=== PATIENT | female | born 1960 | race Caucasian/White ===

== ENCOUNTER 2017-07-25 17:28 | Emergency (ER) | payer OTHER ==
[~2017-07-25] VITALS: Ht 175.3 cm; Wt 66.0 kg
[2017-07-25 17:32] VITALS: BP 133/73; PULSE 80; RESP 18; TEMP 97.6; O2SAT 100
--- NOTE | 2017-07-25 19:42 | PD ---
HPI Chief Complaint: Pain: Acute or Chronic Time Seen by Provider: 19:25 Travel History International Travel<30 days: No Contact w/Intl Traveler<30days: No Traveled to known affect area: No History of Present Illness HPI 56 year old female presenting with a three day history of a sharp "stitch like" chest pain with associated shortness of breath, leg swelling and pressure in her left leg. She states that over the past few weeks she has been taking the train back and forth to [place] because her mother was dying and her father is in hospice. She has never had symptoms like this before. She went to the urgent care for examination and they recommended that she come to the ED. She has no history of cancer, no tobacco use. She does have history of prolonged travel. No recent surgery. [facility] Past Medical History Medical History: Denies Significant Hx ?: Not Past Surgical History Narrative Surgical Denies Family History Narrative Family History To cousins had heart attacks in their 50s. Social History Tobacco Use: No Allergies-Medications (Allergen,Severity, Reaction): Coded Allergies: Penicillins (Verified Allergy, Severe, 07/25/17) Review of Systems Except as stated in HPI: all other systems reviewed are Neg General / Constitutional: No: Fever, Chills HENT: No: Headaches, Lightheadedness Cardiovascular: Positive: Chest Pain or Discomfort, Edema, No: Irregular Rhythm Respiratory: Positive: Shortness of Breath Gastrointestinal: No: Nausea, Vomiting Genitourinary: No: Urgency, Frequency Musculoskeletal: Positive: Myalgias Neurologic: No: Weakness, Dizziness, Syncope Physical Exam Narrative GENERAL: patient is laying in bed comfortably SKIN: Warm and dry. HEAD: Atraumatic. Normocephalic. EYES: Pupils equal and round. No scleral icterus. No injection or drainage. ENT: No nasal bleeding or discharge. Mucous membranes pink and moist. NECK: Trachea midline. No JVD. CARDIOVASCULAR: Regular rate and rhythm. RESPIRATORY: No accessory muscle use. Clear to auscultation. Breath sounds equal bilaterally. GASTROINTESTINAL: Abdomen soft, non-tender, nondistended. Hepatic and splenic margins not palpable. MUSCULOSKELETAL: Extremities without clubbing or cyanosis. Bilateral edema in the lower extremities, negative Zapata sign. Negative circumferential differences in the LE. No obvious deformities. NEUROLOGICAL: Awake and alert. No obvious cranial nerve deficits. Motor grossly within normal limits. Five out of 5 muscle strength in the arms and legs. Normal speech. PSYCHIATRIC: Appropriate mood and affect; insight and judgment normal. Data Data Last Documented VS Vital Signs Date Time Temp Pulse Resp B/P (MAP) Pulse Ox O2 Delivery O2 Flow Rate FiO2 07/25/17 22:12 07/25/17 21:00 76 16 100 Room Air 07/25/17 19:40 2.00 07/25/17 17:32 97.6 Orders Orders Electrocardiogram (07/25/17 19:36) Complete Blood Count With Diff (07/25/17 19:36) Comprehensive Metabolic Panel (07/25/17 19:36) Magnesium (Mg) (07/25/17 19:36) Prothrombin Time / Inr (Pt) (07/25/17 19:36) Act Partial Throm Time (Ptt) (07/25/17 19:36) Troponin I (07/25/17 19:36) Chest, Single Ap (07/25/17 19:36) Ecg Monitoring (07/25/17 19:36) Iv Access Insert/Monitor (07/25/17 19:36) Oximetry (07/25/17 19:36) Oxygen Administration (07/25/17 19:36) Sodium Chloride 0.9% Flush (Ns Flush) (07/25/17 19:45) Ct Pulmonary Angiogram (07/25/17 19:36) Us Leg Venous Doppler Bilat (07/25/17 19:36) Iohexol 350 Inj (Omnipaque 350 Inj) (07/25/17 21:07) Ed Discharge Order (07/25/17 21:54) Labs Laboratory Tests Test 07/25/17 19:55 White Blood Count 7.2 TH/MM3 Red Blood Count 3.90 MIL/MM3 Hemoglobin 12.9 GM/DL Hematocrit 38.2 % Mean Corpuscular Volume 98.1 FL Mean Corpuscular Hemoglobin 33.0 PG Mean Corpuscular Hemoglobin Concent 33.7 % Red Cell Distribution Width 12.5 % Platelet Count 221 TH/MM3 Mean Platelet Volume 9.0 FL Neutrophils (%) (Auto) 51.1 % Lymphocytes (%) (Auto) 34.2 % Monocytes (%) (Auto) 8.1 % Eosinophils (%) (Auto) 5.6 % Basophils (%) (Auto) 1.0 % Neutrophils # (Auto) 3.7 TH/MM3 Lymphocytes # (Auto) 2.5 TH/MM3 Monocytes # (Auto) 0.6 TH/MM3 Eosinophils # (Auto) 0.4 TH/MM3 Basophils # (Auto) 0.1 TH/MM3 CBC Comment DIFF FINAL Differential Comment Prothrombin Time 10.8 SEC Prothromb Time International Ratio 1.1 RATIO Activated Partial Thromboplast Time 25.6 SEC Blood Urea Nitrogen 13 MG/DL Creatinine 0.64 MG/DL Random Glucose 86 MG/DL Total Protein 7.4 GM/DL Albumin 3.9 GM/DL Calcium Level 9.0 MG/DL Magnesium Level 1.7 MG/DL Alkaline Phosphatase 59 U/L Aspartate Amino Transf (AST/SGOT) 15 U/L Alanine Aminotransferase (ALT/SGPT) 16 U/L Total Bilirubin 0.5 MG/DL Sodium Level 138 MEQ/L Potassium Level 3.6 MEQ/L Chloride Level 105 MEQ/L Carbon Dioxide Level 26.7 MEQ/L Anion Gap 6 MEQ/L Estimat Glomerular Filtration Rate 97 ML/MIN Troponin I LESS THAN 0.02 NG/ML MDM Medical Decision Making Medical Screen Exam Complete: Yes Emergency Medical Condition: Yes Differential Diagnosis Pulmonary embolus, DVT, costochondritis, anxiety Narrative Course CBC, Coags, BMP, Duplex U/S of LLE, CT angiogram, EKG, CXR Patient roomed in emergency department, rather atypical chest pain symptoms, fairly thin in no distress, she was offered pain medicine and declined. Initial workup including CT PE exam, bilateral ultrasound lower extremities, basic labs including troponin and EKG are negative. Patient does have family history of heart disease in heart attack, she was offered chest pain center admission for stress testing and patient declined at this time. I discussed with her at length major adverse cardiac event risk including and disability in the next 30 days and she needs to have prompt follow-up with her primary care physician. She will call tomorrow to arrange an appointment. I discussed that if she is change her mind she is welcome to return to the emergency department for repeat evaluation. Diagnosis Primary Impression: Chest pain Referrals: Van Melendez MD Additional Instructions: Follow up with your regular physician tomorrow for an appointment this week. Disposition: 01 DISCHARGE HOME Condition: Stable Yazan Flannery MD Jul 25, 2017 19:42
[2017-07-25] MEDS ORDERED: SODIUM CHLORIDE 0.9% FLUSH 10 ML FLUSH IVF PRN (19:45)
--- NOTE | 2017-07-25 20:20 | RADRPT ---
EXAM DATE/TIME: 07/25/2017 19:47 [facility] COMPARISON: No previous studies available for comparison. INDICATIONS : Shortness of breath. MEDICAL HISTORY : None. SURGICAL HISTORY : None. ENCOUNTER: Initial ACUITY: 1 day PAIN SCORE: 0/10 LOCATION: Bilateral chest FINDINGS: A single view of the chest demonstrates the lungs to be symmetrically aerated without evidence of mas s, infiltrate or effusion. The cardiomediastinal contours are unremarkable. Osseous structures are intact. CONCLUSION: No evidence of acute cardiopulmonary disease. Jame Rodríguez MD on July 25, 2017 at 20:17 Board Certified Radiologist. This report was verified electronically.
[2017-07-25 20:37] LABS: APTT (PATIENT) 25.6 SEC (24.3-30.1); AUTOMATED NEUTROPHIL # 3.7 TH/MM3 (1.8-7.7); BASOPHIL # 0.1 TH/MM3 (0-0.2); EOSINOPHIL # 0.4 TH/MM3 (0-0.4); EOSINOPHIL % 5.6 % (0.0-4.0); HEMATOCRIT 38.2 % (35.0-46.0); HEMO FLAGS DIFF FINAL; INTERNATIONAL NORMALIZED RATIO 1.1 RATIO; LYMPH % 34.2 % (9.0-44.0); LYMPHOCYTE # 2.5 TH/MM3 (1.0-4.8); MEAN CELL VOLUME 98.1 FL (80.0-100.0); MEAN CORPUSCULAR HGB CONC 33.7 % (32.0-36.0); MONO % 8.1 % (0.0-8.0); NEUT % 51.1 % (16.0-70.0); PLATELET COUNT 221 TH/MM3 (150-450); PROTHROMBIN TIME - PATIENT 10.8 SEC (9.8-11.6); RED CELL DISTRIBUTION WIDTH 12.5 % (11.6-17.2); WHITE BLOOD COUNT 7.2 TH/MM3 (4.0-11.0)
--- NOTE | 2017-07-25 20:37 | RADRPT ---
EXAM DATE/TIME: 07/25/2017 19:51 [facility] COMPARISON: No previous studies available for comparison. INDICATIONS : Bilateral leg swelling. MEDICAL HISTORY : None. SURGICAL HISTORY : None. ENCOUNTER: Initial ACUITY: 1 day PAIN SCORE: 2/10 LOCATION: Bilateral legs. TECHNIQUE: Venous ultrasound of the left and right leg was performed from the inguinal ligament to the proximal calf. Real-time, color Doppler and spectral tracing, compression and augmentation techniques were us ed. FINDINGS: RIGHT LEG: There is normal compressibility of the deep venous system from the inguinal region to the proximal ca lf. No echogenic clot is seen in the lumen of the common femoral, femoral, popliteal, and posterior tibial veins. There is a normal response of the venous system to proximal and distal augmentation an d respiration. LEFT LEG: There is normal compressibility of the deep venous system from the inguinal region to the proximal ca lf. No echogenic clot is seen in the lumen of the common femoral, femoral, popliteal, and posterior tibial veins. There is a normal response of the venous system to proximal and distal augmentation an d respiration. CONCLUSION: No venous thrombosis of either lower extremity. Jame Rodríguez MD on July 25, 2017 at 20:34 Board Certified Radiologist. This report was verified electronically.
[2017-07-25 20:42] LABS: ANION GAP 6 MEQ/L (5-15); AST (GOT) 15 U/L (15-37); BICARBONATE 26.7 MEQ/L (21.0-32.0); BLOOD UREA NITROGEN 13 MG/DL (7-18); CHLORIDE 105 MEQ/L (98-107); GLOMERULAR FILTRATION RATE 97 ML/MIN (>89); MAGNESIUM 1.7 MG/DL (1.5-2.5); POTASSIUM 3.6 MEQ/L (3.5-5.1); SODIUM (NA) 138 MEQ/L (136-145)
[2017-07-25 20:43] LABS: ALT (GPT) 16 U/L (10-53)
[2017-07-25 20:47] LABS: ALKALINE PHOSPHATASE 59 U/L (45-117); TOTAL BILIRUBIN ADULT 0.5 MG/DL (0.2-1.0)
[2017-07-25 21:00] VITALS: BP 117/65; PULSE 76; RESP 16; O2SAT 100
[2017-07-25] MEDS ORDERED: IOHEXOL 350 MG/ML 10 ML VIAL (for RAD DIAG) IVCONTRAST ONE (21:07)
--- NOTE | 2017-07-25 21:34 | RADRPT ---
EXAM DATE/TIME: 07/25/2017 21:04 [facility] COMPARISON: CHEST SINGLE AP, July 25, 2017, 19:47. INDICATIONS : Episode of chest pain and leg swelling following travel. Rule out pulmonary embolus. IV CONTRAST: 71 cc Omnipaque 350 (iohexol) IV RADIATION DOSE: 17.75 CTDIvol (mGy) MEDICAL HISTORY : None SURGICAL HISTORY : None. ENCOUNTER: Initial ACUITY: 2 days PAIN SCALE: 4/10 LOCATION: chest TECHNIQUE: Volumetric scanning of the chest was performed using a pulmonary embolism protocol MIP images were re constructed. Using automated exposure control and adjustment of the mA and/or kV according to patien t size, radiation dose was kept as low as reasonably achievable to obtain optimal diagnostic quality images. DICOM format image data is available electronically for review and comparison. Follow-up recommendations for detected pulmonary nodules are based at a minimum on nodule size and pa tient risk factors according to Fleischner Society Guidelines. FINDINGS: PULMONARY ARTERIES: No filling defects are seen in the pulmonary arteries through the segmental level. LUNGS: There is no consolidation or pneumothorax . No concerning pulmonary nodule is visualized. PLEURAE: There is no pleural thickening or pleural effusion. MEDIASTINUM: There is good visualization of the great vessels of the middle mediastinum. No evidence of mediastin al or hilar adenopathy/mass. MUSCULOSKELETAL: Within normal limits for patient age. MISCELLANEOUS: The visualized upper abdominal organs demonstrate no acute abnormality. CONCLUSION: No pulmonary embolus or other acute cardiopulmonary disease demonstrated. Jame Rdoríguez MD on July 25, 2017 at 21:31 Board Certified Radiologist. This report was verified electronically.
--- NOTE | 2017-07-26 18:42 | EKG ---
Date Performed: 07/25/2017 Time Performed: 19:53:52 PTAGE: 56 years EKG: Sinus rhythm WITH SINUS ARRHYTHMIA POSSIBLE LEFT ATRIAL ENLARGEMENT NONSPECIFIC T-WAVE ABNORMALITY BORDERLINE ECG NO PREVIOUS TRACING DOCTOR: Shirlene Miller Interpretating Date/Time 07/26/2017 18:41:37
== END 2017-07-25 22:32 | disposition home or self-care (01) ==
LOC: NEPD 17:28
DX: R07.9 Chest pain, unspecified (principal); R06.02 Shortness of breath; M79.89 Other specified soft tissue disorders; I49.8 Other specified cardiac arrhythmias; R94.31 Abnormal electrocardiogram [ECG] [EKG]; Z88.0 Allergy status to penicillin
CPT/HCPCS: 71010; 71275; 80053; 83735; 84484; 85025; 85610; 85730; 93005; 93970; 99285; Q9967